=== PATIENT | male | born 1965 | race African-American/Black ===

== ENCOUNTER 2019-01-06 07:15 | Inpatient (IN) | payer OTHER ==
[2019-01-03 10:13] LABS: BASOPHILS # (AUTO) 0.1 (0.0-0.1); BASOPHILS % 1.8 % (0.0-1.0); EOSINOPHILS # (AUTO) 0.2 (0.0-0.4); EOSINOPHILS % 4.1 % (0.0-6.0); HEMOGLOBIN 14.9 g/dL (14.0-18.0); LYMPHOCYTES # (AUTO) 1.5 (1.0-3.2); MEAN CORPUSCULAR HEMOGLOBIN 31.8 pg (28-32); MEAN CORPUSCULAR HGB CONC 34.7 g/dL (31-35); MEAN CORPUSCULAR VOLUME 91.7 fL (81-99); MONOCYTES # (AUTO) 0.4 (0.2-0.8); MONOCYTES % 9.9 % (4.4-11.3); NEUTROPHILS # (AUTO) 1.8 (2.1-6.9); NEUTROPHILS % 46.9 % (38.7-80.0); PLATELET COUNT 420 x10e3/uL (140-360); RED BLOOD COUNT 4.69 x10e6/uL (4.3-5.7); RED CELL DISTRIBUTION WIDTH 12.8 % (11.7-14.4)
[2019-01-03 10:47] LABS: ANION GAP 18.5 mmol/L (8-16); CALCIUM 11.2 mg/dL (8.4-10.2); CREATININE, SERUM 1.51 mg/dL (0.72-1.25); POTASSIUM 3.5 mmol/L (3.5-5.1)
[~2019-01-06] VITALS: Ht 165.1 cm; Wt 71.7 kg
[~2019-01-06 07:15] MED LIST: AMBIEN10 MG PO; HYDROCHLOROTHIA25 MG PO; LISINOPRIL10 MG PO; NIFEDIPINE20 MG PO; NORCO 10-325 T1 EACH PO; SEROQUEL25 MG PO; SEROQUEL400 MG PO; WELLBUTRIN SR150 MG PO
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
[2019-01-06] MEDS ORDERED: ROPIVACAINE 246.25 MG, EPINEPHRINE HCL 1:1000 1ML 0.5 MG, CLONIDINE HCL 0.08 MG, KETORO... INJ ONE ×5 (07:30)
[2019-01-06] MEDS ORDERED: GABAPENTIN 300 MG CAP ONE (07:38)
[2019-01-06] MEDS ORDERED: CELECOXIB 200 MG CAP ONE (07:38)
[2019-01-06] MEDS ORDERED: CEFAZOLIN SOD 1 GM/NS 50ML 100 ML IV ONE (07:38)
[2019-01-06] MEDS ORDERED: DEXAMETHASONE SOD PHOS 10 MG/1 ML VIAL ONE (07:38)
[2019-01-06] MEDS ORDERED: TRANEXAMIC ACID 1,000 MG/10 ML ML ONE (08:54)
[2019-01-06] MEDS ORDERED: VANCOMYCIN HCL 1,000 MG ONE (08:54)
[2019-01-06] MEDS ORDERED: BACITRACIN 50,000 UNIT VIAL ONE (08:54)
[2019-01-06] MEDS ORDERED: SODIUM CHLORIDE 0.9% 500ML 500 ML ONE (08:54)
[2019-01-06] MEDS ORDERED: BUPIVACAINE 7.5MG/ML /DEXTROSE 82.5MG/ML 2 ML AMP INJ ONE (09:08)
[2019-01-06] MEDS ORDERED: ACETAMINOPHEN 1000 MG/100 ML 100 ML IV ONE (10:08)
[2019-01-06] MEDS ORDERED: ACETAMINOPHEN 650 MG SUPP PR PRN (11:15)
[2019-01-06] MEDS ORDERED: DOCUSATE SODIUM 100 MG CAP PO PRN (11:15)
[2019-01-06] MEDS ORDERED: HYDROCODONE/APAP 5MG-325MG TAB PO PRN (11:15)
[2019-01-06] MEDS ORDERED: KETOROLAC TROMETHAMINE 30 MG/ML VIAL IV PRN (11:15)
[2019-01-06] MEDS ORDERED: PROMETHAZINE HCL (IM) 25 MG/ML VIAL INJ PRN (11:15)
[2019-01-06] MEDS ORDERED: ONDANSETRON HCL INJ 2MG/ML 2ML 2 MG/ML VIAL IV PRN (11:15)
[2019-01-06] MEDS ORDERED: DIPHENHYDRAMINE HCL INJ 50 MG/ML VIAL IM/IV PRN (11:15)
[2019-01-06] MEDS ORDERED: ZOLPIDEM TARTRATE 5 MG TAB PO PRN (11:15)
[2019-01-06] MEDS ORDERED: MEPERIDINE HCL INJ 25 MG/ML VIAL ONE (11:36)
[2019-01-06] MEDS: ACETAMINOPHEN 1000 MG/100 ML IV SCH ×2 (12:00→17:42)
--- NOTE | 2019-01-06 14:16 | Diagnostic Imaging Report ---
EXAMINATION: PELVIS AP 1-2 VIEWS INDICATION: Postoperative COMPARISON: None FINDINGS: AP image of the pelvis demonstrates postoperative findings of left total hip replacement. Alignment appears anatomic. No unexpected fracture. Surgical skin gisselle overlie the left lateral thigh. Subcutaneous postoperative soft tissue emphysema. Mild degenerative changes of the pilot point right hip joint. IMPRESSION: Anatomic alignment status post left total hip replacement. Signed by: Verena Lisa MD on 01/06/2019 2:13 PM
--- NOTE | 2019-01-06 14:30 | NUR ---
RECEIVED TO RM IN STABLE CONDITION, PT AAOX3 NO DISTRESS NOTED, UPDATED ON POC VOCIED UNDERSTANDING, DSG TO LEFT HIP C/D/I, IVF INFUSING TO R FA 20G NO SS OF INFILTRATION NOTED, NO OTHER CO VOCIED CALL LIGHT IN REACH WILL CONTINUE TO MONITOR
[2019-01-06 14:47] VITALS: BP 110/79
[2019-01-06 15:55] VITALS: BP 114/72
--- NOTE | 2019-01-06 16:11 | NUR ---
DR HARVEY OFFICE PREARRANGED FOLLOWING DISCHARGE PLAN OF: HOME HEALTH WITH HOME CARE PROVIDERS WHICH IS NOT IN NETWORK AND SENT TO [facility] [phone] CONFIRMED WITH HOPE, SHE STATES SHE DID NOT HAVE CORRECT PHONE NUMBER FOR PT, I WENT TO ROOM AND GOT FROM PATIENT [phone] ROLLING WALKER WITH WHEELS PROVIDED BY [employer] [phone] to be delivered to hospital by 10am discharge, 3 in one is not covered by insurance. told patient and he is not able to pay thompson javier. He and his mother state he will be rehabbing in a personal skilled nursing so do not want to provide a 3 in 1 for whole home.
[2019-01-06] MEDS: CEFAZOLIN SOD 1 GM/NS 50ML 50 ML IV SCH (16:50)
[2019-01-06] MEDS: SODIUM CHLORIDE 0.9% 1000ML 1,000 ML IV SCH (16:50)
[2019-01-06] MEDS: ASPIRIN 325 MG TAB PO SCH (16:50)
[2019-01-06] MEDS: HYDROCODONE/APAP 7.5MG-325MG 1 EA TAB PO PRN ×2 (16:50→21:17)
[2019-01-06] MEDS: CELECOXIB 200 MG CAP PO SCH (16:50)
[2019-01-06] MEDS: QUETIAPINE FUMARATE 25 MG TAB PO SCH ×2 (17:06→21:00)
[2019-01-06] MEDS ORDERED: PROPOFOL IV EMULSION 10 MG/ML 20 ML VIAL ONE (18:17)
[2019-01-06] MEDS ORDERED: LIDOCAINE HCL 2% LOCAL INJ 5 ML SDV VIAL INJ ONE (18:17)
[2019-01-06] MEDS ORDERED: FENTANYL CITRATE/PF 100MCG/2 ML INJ ONE (18:28)
[2019-01-06] MEDS ORDERED: MIDAZOLAM HCL 2 MG/2 ML VIAL ONE (18:28)
[2019-01-06 20:00] VITALS: BP 125/81
--- NOTE | 2019-01-06 20:02 | NUR ---
Received change of shift report from AM nurse. Walking rounds completed.
[2019-01-06] MEDS ORDERED: BUPROPION HCL SR 150 MG TAB PO SCH (21:00)
[2019-01-06] MEDS ORDERED: QUETIAPINE FUMARATE 600 MG PO SCH (21:00)
[2019-01-06] MEDS ORDERED: QUETIAPINE FUMARATE 100 MG TAB PO SCH (21:00)
[2019-01-06] MEDS ORDERED: ZOLPIDEM TARTRATE 10 MG TAB PO SCH (21:00)
[2019-01-06 23:49] VITALS: BP 123/83
--- NOTE | 2019-01-07 | NUR ---
Patient requested pain meds given as ordered by MD. Will f/up.
[2019-01-07] MEDS: HYDROCODONE/APAP 7.5MG-325MG 1 EA TAB PO PRN ×4 (01:16→18:02)
[2019-01-07] MEDS: CEFAZOLIN SOD 1 GM/NS 50ML 50 ML IV SCH ×2 (02:00→09:49)
[2019-01-07 04:00] VITALS: BP 140/68
[2019-01-07 05:26] LABS: HEMATOCRIT 26.5 % (38.2-49.6)
[2019-01-07 05:29] LABS: HEMOGLOBIN 9.1 g/dL (14.0-18.0)
[2019-01-07] MEDS: ACETAMINOPHEN 1000 MG/100 ML IV SCH ×3 (05:30→05:33)
--- NOTE | 2019-01-07 05:30 | Consultation ---
DATE OF CONSULTATION: REASON FOR CONSULTATION: Postop medical management. HISTORY OF PRESENT ILLNESS: The patient is a 53-year-old gentleman, status post left hip arthroplasty for end-stage osteoarthritis, who postoperatively states he is having moderate pain in the left hip area, but he is better with the pain medication. REVIEW OF SYSTEMS: Otherwise, he denies any fever, chills, nausea, vomiting, headache, shortness of breath, or dizziness. PAST MEDICAL HISTORY: Significant for hypertension and anxiety disorder. MEDICATIONS: See MAR. ALLERGIES: NONE. SOCIAL HISTORY: Nonsmoker and nondrinker. FAMILY HISTORY: Hypertension. PHYSICAL EXAMINATION: VITAL SIGNS: Temperature is 96.8, pulse 74, blood pressure 123/83, and sats 97% on room air. GENERAL: He is in no apparent distress, lying in bed. NECK: Supple. CARDIOVASCULAR: Regular rate and rhythm. LUNGS: Clear to auscultation bilaterally. ABDOMEN: Good bowel sounds. Soft and nontender. EXTREMITIES: No clubbing or cyanosis. NEUROLOGIC: Nonfocal. Moves all extremities x4. ASSESSMENT AND PLAN: 1. Left hip pain, status post arthroplasty. Continue with postoperative care. Continue with pain control. 2. Anemia, check a CBC. 3. Hypertension. Continue with his medication. 4. Anxiety disorder. Continue with his home medications. Please see hospital chart for full details. MD SHANE Clemons/LENI /[id number]
[2019-01-07] MEDS: SODIUM CHLORIDE 0.9% 1000ML 1,000 ML IV SCH ×3 (05:40→16:48)
--- NOTE | 2019-01-07 06:34 | NUR ---
Patient resting quitly at this time.
--- NOTE | 2019-01-07 07:09 | NUR ---
pt asleep resp even and unlabored at this time no distress noted, pt easily aroused, and able to make needs known, call light in reach. will cont to monitor.
[2019-01-07 07:29] VITALS: BP 124/81
[2019-01-07 07:59] VITALS: BP 124/81
--- NOTE | 2019-01-07 08:34 | Operative Report ---
DATE OF PROCEDURE: 01/06/2019 SURGEON: Jori Burch MD BROKER: Toño Gonzales, certified PA. PREOPERATIVE DIAGNOSIS: End-stage osteoarthritis of left hip. POSTOPERATIVE DIAGNOSIS: End-stage osteoarthritis of left hip. PROCEDURE: Left total hip arthroplasty. INDICATIONS: The patient is a 53-year-old gentleman, who has severe neglected end-stage arthritis of his left hip. Definitive treatment will require a left total hip replacement. The risks and benefits of the procedure have been discussed at length. He states he understands and wishes to proceed. DESCRIPTION OF PROCEDURE: The patient was brought to the operating room and given a spinal anesthetic. He received IV sedation. He also received prophylactic antibiotics and tranexamic acid in the holding area. He was positioned in the right lateral decubitus position. His left hip was prepped and draped in a sterile manner. A preoperative time-out was performed. A posterior approach was made to the left hip. Care was taken to avoid injury to the sciatic nerve. Hemostasis was obtained with electrocautery. A Charnley self-retaining retractor was placed. The posterior capsule was carefully exposed. This was quite severely contracted and thickened. This was released and the hip was dislocated. Additional soft tissue releases were necessary. An oscillating saw was used to resect the femoral head. Complete loss of articular cartilage was noted. A box-cutting osteotome was used to obtain bone graft from the proximal femur and from the femoral head for later acetabular reconstruction. The socket was then carefully exposed. Retractors were placed anterior and inferiorly. The superior aspect of the socket had been severely worn. The true floor of the acetabulum was eventually established with a 46 mm reamer. Labral remnants had been removed. The hip was thoroughly irrigated on several occasions throughout this portion of the case with a shower tip pulsatile lavage. The socket was then sequentially reamed up to 57 mm. This accomplished fairly extensive hemispherical bleeding cancellous bone. The superior 20% of the socket would eventually not be covered. A [employer] 58 mm outer diameter OsseoTi socket was then impacted into place. Fixation was actually quite good. Screw fixation was placed with two additional cancellous screws into the ilium. The bone was densely sclerotic and the purchase of the screws was excellent. The superior rim of the socket had been decorticated with a curved osteotome. Autologous bone graft, it was then impaction grafted into the superior defect. A highly cross-linked polyethylene liner was then impacted into place, this had a 36 mm inner diameter. Care was taken to make sure that there was no evidence of soft tissue interposition. Once again, the hip had been thoroughly irrigated on several occasions with a shower tip pulsatile lavage. Additional irrigation was performed with a diluted mixture of polymyxin and vancomycin spray. Attention was then directed towards the proximal femur. A taper pin reamer was used to establish entry down the femoral canal. The [employer] taper lock broaches were impacted. A size 16 stem had good canal fill for trial reductions. A standard 36 mm head and neck was felt to be provide appropriate zoroastrian of limb length and stability to a full arc of motion. The trial component was removed. A 100 mL premixed pericapsular ASHLYN injection was placed in an around the surrounding soft tissue. The stem was seated. Good fixation was again obtained. The head and neck were seated onto the stem after it was thoroughly irrigated and dried. A final reduction was performed. What was left of the posterior capsule was carefully repaired with #2 Ethibond. The piriformis could be prepared as well. The wound was further irrigated prior to closing the fascia. A 500 mg of vancomycin powder was sprinkled into the deep portion of the wound. The fascia was closed with interrupted #2 Ethibond. The skin was closed with subcuticular Vicryl and gisselle. A sterile Aquacel bandage was applied. The patient was returned to the supine position. He was transported to the recovery room in stable condition. Blood loss was approximately 100 mL. All needle and sponge counts were correct. Jori Burch MD DR/LENI /[id number]
[2019-01-07] MEDS ORDERED: NIFEDIPINE CR 30 MG TAB PO SCH (09:00)
[2019-01-07] MEDS ORDERED: LISINOPRIL 10 MG TAB PO SCH (09:00)
[2019-01-07] MEDS ORDERED: HYDROCHLOROTHIAZIDE 25 MG TAB PO SCH (09:00)
[2019-01-07] MEDS ORDERED: NON-FORMULARY MEDICATION (Nifedipine 60 MG) PO SCH (09:00)
[2019-01-07] MEDS ORDERED: LISINOPRIL 20 MG TAB PO SCH (09:00)
--- NOTE | 2019-01-07 09:00 | NUR ---
pt ambulated with PT, tolerated well.
[2019-01-07] MEDS: CELECOXIB 200 MG CAP PO SCH ×2 (09:48→16:37)
[2019-01-07] MEDS: ASPIRIN 325 MG TAB PO SCH ×2 (09:48→16:37)
[2019-01-07] MEDS: QUETIAPINE FUMARATE 25 MG TAB PO SCH ×3 (09:49→16:37)
[2019-01-07 11:00] VITALS: BP 126/85
[2019-01-07] MEDS ORDERED: ACETAMINOPHEN 1000 MG/100 ML IV PRN (11:15)
[2019-01-07] MEDS ORDERED: ONDANSETRON HCL 4 MG ORAL DISINTEGRATING TAB PO PRN (12:30)
--- NOTE | 2019-01-07 12:30 | NUR ---
pt amb. with PT no c/o pain at this time.
--- NOTE | 2019-01-07 13:25 | NUR ---
Visit made by the Spiritual Care Department Pastoral Visitor, Rosalie Rios. Pt sleeping soundly and no family present. Pastoral Visitor left a card describing availability of slubber frame changer and instructions on how to contact a slubber frame changer. [facility] Rn Call Center Spiritual Care Department O: [phone] Pager: [phone] ([phone] number calling from)
[2019-01-07 15:36] VITALS: BP 156/95
--- NOTE | 2019-01-07 18:00 | NUR ---
pt discharge home, pt was educated on his medication, pt verbalized understanding, pt was given information on his diagnoses, and was asked to follow up with his Ortho doctor and his PCP, pt iv site removed no swelling no redness to site.
== END 2019-01-07 17:50 | disposition home or self-care (01) | DRG 470 ==
LOC: OR 07:15 → PACU V 11:09 → MED/SURG 14:16
PROVIDERS: ADMIT Specialist; ATTEND Specialist
PROC: 0SRB029 Replacement of Left Hip Joint with Metal on Polyethylene Synthetic Substitute, Cemented, Open Approach (ICD-10-PCS; principal; 2019-01-07)
DX: M16.12 Unilateral primary osteoarthritis, left hip (principal); E05.90 Thyrotoxicosis, unspecified without thyrotoxic crisis or storm; Z86.19 Personal history of other infectious and parasitic diseases; K21.9 Gastro-esophageal reflux disease without esophagitis; I10 Essential (primary) hypertension; Z86.73 Personal history of transient ischemic attack (TIA), and cerebral infarction without residual deficits; F20.9 Schizophrenia, unspecified; D64.9 Anemia, unspecified
CPT/HCPCS: 36415; 72170; 80048; 85014; 85018; 85025; 86850; 86900; 86920; 96365; J0171; J0690; J1100; J1885; J2001; J2175; J2250; J2795; J3010; J3370; J7030; J7040